=== PATIENT | male | born 1965 | race Caucasian/White ===

== ENCOUNTER 2016-12-20 09:05 | Inpatient (IN) ==
[2016-12-20] MEDS ORDERED: NARCAN ONE ×6 (09:14→09:29)
[2016-12-20] MEDS ORDERED: NS 1,000 ML ONE (09:20)
[2016-12-20] MEDS ORDERED: NARCAN 2 MG in NS 500 ML IV SCH (09:45)
[2016-12-20 09:51] LABS: MANUAL DIFF NEEDED? NO
--- NOTE | 2016-12-20 09:56 | Diag Imaging Result Doc PS360 ---
EXAM: CHEST-PORTABLE HISTORY: sob/cp TECHNIQUE: Erect AP portable chest at 0936 COMMENT: The appearance of the chest has not changed significantly since 09/09/2015. There is no evidence of acute pulmonary disease. The heart size and primary vascularity are within normal limits. IMPRESSION: No acute disease. Electronically signed by Alvaro Huff 12/20/2016 9:53 AM
[2016-12-20 09:57] LABS: BASO% 0.5 % (0.0-0.8); EOS# 0.11 X1000 (0.0-0.7); EOS% 1.3 % (0.0-10.0); HEMATOCRIT 46.7 % (42.0-52.0); HEMOGLOBIN 15.8 g/dL (14.0-18.0); IMM GRAN# 0.05 X1000 (0.0-0.04); IMM GRAN% 0.6 % (0.0-0.5); LYMPH# 5.03 X1000 (1.2-3.4); LYMPH% 57.7 % (20.5-51.1); MCH 30.4 PG (27-31); MCHC 33.8 g/dL (33-37); MCV 89.8 FL (81-99); MONO# 0.63 X1000 (0.11-0.59); MONO% 7.2 % (1.7-9.3); MPV 12.4 FL (7.4-10.4); NEUT% 32.7 % (42.2-75.2); PLT 229 X1000 (130-400)
[2016-12-20] MEDS ORDERED: ZOFRAN IV PRN (10:13)
[2016-12-20 10:20] LABS: AGAP 19; ALBUMIN 3.7 g/dL (3.5-5.0); ALKALINE PHOSPHATASE 100 U/L (32-122); BUN 15 mg/dL (8-22); CALCIUM 8.4 mg/dL (8.8-10.2); CHLORIDE 91 mmol/L (98-107); COSMO 284; GOT 26 U/L (10-34); GPT 35 U/L (10-44); POTASSIUM 4.2 mmol/L (3.5-5.1); SODIUM 131 mmol/L (136-145); TCO2 21 mmol/L (25-35); TOTAL PROTEIN 7.1 g/dL (6.3-8.3)
--- NOTE | 2016-12-20 10:20 | PROVIDER DOCUMENTATION ---
This chart was entered by Ashwin Schneider Scribe, acting as scribe for Macario Real MD. [id number] Abuse/Overdose - General Chief Complaint: Overdose Stated Complaint: POSS OVERDOSE Time Seen by Provider: 12/20/16 09:05 Source: EMS Unable to obtain history due to:: altered (due to possible overdose) Allergies/Adverse Reactions: Allergies Allergy/AdvReac Type Severity Reaction Status Date / Time No Known Allergies Allergy Verified 12/20/16 09:19 Home Medications: Home Medication List Medication Instructions Recorded Confirmed Last Taken Type Hydrochlorothiazide 25 mg PO DAILY 04/04/12 02/04/15 02/04/15 History Metoprolol [Lopressor] 50 mg PO DAILY 04/04/12 02/04/15 02/04/15 History Acetaminophen with Codeine 1 each PO Q6H PRN PRN #20 tablet 01/20/15 02/04/15 2 Days Ago Rx [Tylenol with Codeine #3 Tablet] Lisinopril [Zestril] 2.5 mg PO 02/04/15 02/04/15 02/04/15 History Metformin [Glucophage] 1,000 mg PO BID 02/04/15 02/04/15 02/04/15 History Omeprazole [Prilosec] 40 mg PO DAILY 02/04/15 02/04/15 02/04/15 History Sulfamethoxazole/Trimethoprim 1 each PO BID 02/04/15 02/04/15 02/04/15 History [Bactrim Ds Tablet] Tamsulosin [Flomax] 0.4 mg PO QHS 02/04/15 02/04/15 1 Day Ago History Azithromycin [Zithromax] 250 mg PO DAILY #4 tablet 09/10/15 Unknown Rx - History of Present Illness-Drug/Alcohol Nature of Presenting Problem: Patient is a 51 yo M that presents unresponsive and intubated per EMS. they report initially the call went out as a chest pain, patient was found unresponsive with breathing 2 times a minute. He was intubated by EMS, pt has long standing history of Heroin use This episode of drinking or use began:: unsure Severity: reports: severe Situational problems related to:: reports: N/A Associated Symptoms: reports: shortness of breath, vomiting. denies: diarrhea, fever/chills Similar Symptoms Previously?: Yes Recently seen or treated by another doctor?: No - Substance Abuse Substance Use: reports: opiates - Overdose Intentional drug overdose?: No List substance(s) ingested.: possible Heroin Review of Systems - Adult - REVIEW OF SYSTEMS - ADULT ROS:: unobtainable per condition Constitutional: reports: see HPI Eyes: reports: see HPI Ears, Nose, Mouth & Throat: reports: see HPI Cardiovascular: reports: see HPI Respiratory: reports: see HPI Gastrointestinal: reports: see HPI Genitourinary: reports: see HPI Musculoskeletal: reports: see HPI Integumentary: reports: see HPI Neurological: reports: see HPI Psychiatric: reports: see HPI Endocrine: reports: see HPI Hematologic/Lymphatic: reports: see HPI Allergic/Immunologic: reports: see HPI All Other Systems: Reviewed and Negative Past History - Adult - PAST MEDICAL HISTORY-ADULT Review of Records: reports: Old Records Reviewed, Nursing Assessment Review, Medications Reviewed Cardiovascular: reports: HTN Gastrointestinal: reports: GERD, other (cirrhosis) Endocrine/Immune: reports: Diabetes - PRIOR SURGERIES/PROCEDURES Surgical/Procedure History: reports: reviewed, not pertinent - PRIOR HOSPITALIZATIONS Prior Hospitalizations: reports: none - IMMUNIZATION STATUS Childhood Immunizations: See Nurse Assessment Flu Vaccine: See Nurse Assessment - FAMILY HISTORY Family History: reviewed, not pertinent - SOCIAL HISTORY Smoking: chew Substance Use: marijuana, opiates Alcohol Use Frequency: occasionally Living Situation: friend Physical Exam-General - PHYSICAL EXAM-ADULT Exam Limited by: pt condition Initial Vital Signs Reviewed: Yes - CONSTITUTIONAL General Appearance: severe distress, other (unresponsive) - EYES Eyes: other (pinpoint pupils) - HEAD, EARS, NOSE, MOUTH & THROAT HENMT: normocephalic/atraumatic, other (et tube in place) - RESPIRATORY Respiratory: respiratory distress, decreased rate - CARDIOVASCULAR Cardiovascular: regular rate, rhythm, no edema, no murmur - GASTROINTESTINAL (ABDOMEN) Abdominal Exam: normal bowel sounds, soft. negative: distended, rigid - MUSCULOSKELETAL Extremity: no pedal edema, normal capillary refill, pelvis stable - SKIN Integumentary: normal color, warm/dry - PSYCHIATRIC Psych/Mental Status: other (unresponsive) Progress - PLAN OF CARE/RESULTS Progress/Plan/Lab Results: Vital Signs - 8 hr 12/20/16 09:16 12/20/16 09:49 Temperature 97.0 F L Pulse Rate 93 H 94 H Respiratory Rate 2 L 40 H Blood Pressure 145/103 130/081 O2 Sat by Pulse Oximetry 99 87 L Laboratory Results - last 24 hr 12/20/16 12/20/16 09:11 09:11 WBC 8.71 RBC 5.20 Hgb 15.8 Hct 46.7 MCV 89.8 MCH 30.4 MCHC 33.8 RDW Std Deviation 13.5 Plt Count 229 MPV 12.4 H Immature Gran % (Auto) 0.6 H Neut % (Auto) 32.7 L Lymph % (Auto) 57.7 [place] % (Auto) 7.2 Eos % (Auto) 1.3 Baso % (Auto) 0.5 Immature Gran # (Auto) 0.05 H Neut # (Auto) 2.85 Lymph # (Auto) 5.03 [place] # (Auto) 0.63 H Eos # (Auto) 0.11 Baso # (Auto) 0.04 Estimated GFR/1.73 m2 > 60 Orders Category Date Time Status CHEST-PORTABLE [RAD] Stat Exams 12/20/16 09:36 Completed CBC WITH ELECTRONIC DIFF [HEME] Stat Lab 12/20/16 09:11 Completed CMP [COMPREHENSIVE METABOLIC PANEL] [CHEM] Stat Lab 12/20/16 09:[address] W/POSS RFLX CULT [URINALYSIS] Stat Lab 12/20/16 09:47 Ordered URINE DRUG SCREEN PL Stat Lab 12/20/16 09:47 Ordered 0.9% Sodium Chloride Inj [Ns] 1,000 ml Med 12/20/16 09:20 Discontinued .ROUTE As Directed 0.9% Sodium Chloride Inj [Ns] 500 ml Med 12/20/16 09:45 Active Naloxone [Narcan] 2 mg IV As Directed 0920-patient was given narcan and had immediate response, with eyes opening and moving around, ET tube was taken out and patient is talking and breathing on his own. patient reports not knowing what happened, denies taking the white lady or chasing the dragon Vital Signs Temp Pulse Resp BP Pulse Ox 12/20/16 09:49 97.0 F L 94 H 40 H 130/081 87 L 12/20/16 09:16 93 H 2 L 145/103 99 No Known Allergies Allergy (Verified 12/20/16 09:19) Hydrochlorothiazide 25 mg PO DAILY 04/04/12 Metoprolol [Lopressor] 50 mg PO DAILY 04/04/12 Acetaminophen with Codeine [Tylenol with Codeine #3 Tablet] 1 each PO Q6H PRN PRN #20 tablet 01/20/15 Lisinopril [Zestril] 2.5 mg PO 02/04/15 Metformin [Glucophage] 1,000 mg PO BID 02/04/15 Omeprazole [Prilosec] 40 mg PO DAILY 02/04/15 Sulfamethoxazole/Trimethoprim [Bactrim Ds Tablet] 1 each PO BID 02/04/15 Tamsulosin [Flomax] 0.4 mg PO QHS 02/04/15 Azithromycin [Zithromax] 250 mg PO DAILY #4 tablet 09/10/15 Laboratory 12/20/16 12/20/16 09:11 09:11 WBC 8.71 RBC 5.20 Hgb 15.8 Hct 46.7 MCV 89.8 MCH 30.4 MCHC 33.8 RDW Std Deviation 13.5 Plt Count 229 MPV 12.4 H Immature Gran % (Auto) 0.6 H Neut % (Auto) 32.7 L Lymph % (Auto) 57.7 [place] % (Auto) 7.2 Eos % (Auto) 1.3 Baso % (Auto) 0.5 Immature Gran # (Auto) 0.05 H Neut # (Auto) 2.85 Lymph # (Auto) 5.03 [place] # (Auto) 0.63 H Eos # (Auto) 0.11 Baso # (Auto) 0.04 Estimated GFR/1.73 m2 > 60 Orders Category Date Time Status CHEST-PORTABLE [RAD] Stat Exams 12/20/16 09:36 Completed CBC WITH ELECTRONIC DIFF [HEME] Stat Lab 12/20/16 09:11 Completed CMP [COMPREHENSIVE METABOLIC PANEL] [CHEM] Stat Lab 12/20/16 09:[address] W/POSS RFLX CULT [URINALYSIS] Stat Lab 12/20/16 09:47 Ordered URINE DRUG SCREEN PL Stat Lab 12/20/16 09:47 Ordered 0.9% Sodium Chloride Inj [Ns] 1,000 ml Med 12/20/16 09:20 Discontinued .ROUTE As Directed 0.9% Sodium Chloride Inj [Ns] 500 ml Med 12/20/16 09:45 Active Naloxone [Narcan] 2 mg IV As Directed pt admitted to using heroin just doesn't recall the route he used it Result Diagrams: 12/20/16 09:11 12/20/16 09:11 - XRAY 1 XRAY Study: Chest Impression: Normal XRAY Interpretation: negative per radiologist - CONSULTS/PCP/HOSPITALIST Notification #1 *Consult/PCP/Hospitalist*: operations supervisor 2nd shift for hosptialist Time Discussed: 10:11 Consult Disposition: Admit Departure - Departure Date of Disposition Decision: 12/20/16 Time of Disposition Decision: 10:12 DIAGNOSIS: Heroin overdose Qualifiers: Encounter type: initial encounter Injury intent: accidental or unintentional Qualified Code(s): T40.1X1A - Poisoning by heroin, accidental (unintentional), initial encounter Disposition: ADMITTED INPATIENT 09 Certified Medical Emergency: Emergent Condition: Stable Referrals and Follow-Ups: None,PCP [Primary Care Provider] - - Critical Care Note This patient required my direct & personal management of CC.: Yes Total Time (mins): 40 Critical Care Statement: This patient required my direct personal management to treat or rule out processes, the absence of which, could potentiallly result in sudden, clinically significant life or limb threatening deterioration. This chart was documented by the indicated scribe, (Ashwin Schneider, Scribe) and accurately reflects the services I performed and decisions made by me, Macario Real MD, as attested by the provider's signature.
[2016-12-20 10:45] LABS: URINE CULTURE PL NEEDED? NO
[2016-12-20 10:57] LABS: UR AMPHETAMINES QUAL PRESUMPTIVE POSITIVE (NONE DETECT); UR BARBITUATES QUAL NONE DETECTED (NONE DETECT); UR BENZODIAZEPIN QUAL PRESUMPTIVE POSITIVE (NONE DETECT); UR CANNABINOIDS QUAL NONE DETECTED (NONE DETECT); UR COCAINE QUAL NONE DETECTED (NONE DETECT); UR MDMA QUAL NONE DETECTED (NONE DETECT); UR METHADONE QUAL NONE DETECTED (NONE DETECT); UR METHAMPHETAMINE QUAL PRESUMPTIVE POSITIVE (NONE DETECT); UR OPIATES QUAL NONE DETECTED (NONE DETECT); UR OXYCODONE QUAL NONE DETECTED (NONE DETECT); UR PCP QUAL NONE DETECTED (NONE DETECT); UR TCA QUAL NONE DETECTED (NONE DETECT)
[2016-12-20 11:00] LABS: BILIRUBIN URINE NEGATIVE (NEGATIVE); BLOOD URINE NEGATIVE (NEGATIVE); CLARITY CLEAR (CLEAR); COLOR YELLOW; LEUKOCYTES URINE NEGATIVE (NEGATIVE); NITRITE URINE NEGATIVE (NEGATIVE); PROTEIN URINE TRACE mg/dL (NEGATIVE); SP GRAVITY URINE 1.025; UROBILINOGEN URINE NORMAL
[2016-12-20] MEDS: NS 1,000 ML IV SCH (11:00)
[2016-12-20 11:02] LABS: URINE EPITHELIAL CELLS <10 /HPF (<10); URINE RBC <10 /HPF (<10); URINE WBC <10 /HPF (<10)
[2016-12-20 11:03] LABS: URINE CAST NONE SEEN /LPF; URINE CRYSTAL NONE SEEN /HPF; URINE SOURCE CLEAN CATCH
[2016-12-20 11:51] LABS: HEMOGLOBIN A1C 7.1 % (4.8-6.0)
[2016-12-20 12:05] LABS: BLOOD TYPE ARTERIAL; METHB 1.5 % (0.0-1.5); O2(CT) 20.9 mL/dL (15.0-23.0); PO2(98.6) 60 mmHg (60-100); SAMPLE BLOOD; SAO2 91.7 % (95.0-100.0); THB 16.8 g/dL (11.5-17.4)
[2016-12-20 12:09] LABS: ALLEN TEST YES; DRAW SITE L RADIAL; MODALITY NRB
[2016-12-20 12:11] LABS: PCO2(98.6) 57 mmHg (35-45)
--- NOTE | 2016-12-20 12:36 | EKG Report ---
Test Performed on : 12/20/2016 09:20:11 AM Test Reason : CP Blood Pressure : / mmHG Vent. Rate : 094 BPM Atrial Rate : 094 BPM P-R Int : 142 ms QRS Dur : 090 ms QT Int : 386 ms P-R-T Axes : -02 042 072 degrees QTc Int : 482 ms Normal sinus rhythm. Prolonged QT Abnormal ECG No previous ECGs available Unconfirmed Result
--- NOTE | 2016-12-20 14:43 | HISTORY AND PHYSICAL ---
PRIMARY CARE PHYSICIAN: Dr. Hensley. CHIEF COMPLAINT: Found unresponsive at home breathing 2 times a minute. Upon EMS arrival he was intubated. Has a history of heroin use. HISTORY OF PRESENTING ILLNESS: This is a 51-year-old male who arrived to [facility] via EMS after they were called stating the patient was found unresponsive and breathing 2 times a minute. He was intubated in the field by EMS. Has a longstanding history of heroin use according to the friend in the home. On arrival to the emergency room he was intubated. He was given Narcan and had immediate response with eyes opening and moving around. The ET tube was taken out and patient was talking and breathing on his own. States that he used heroin this morning but states that he does not use daily but occasionally. After extubation he was placed on a non-rebreather saturating 87-90% with respirations 40-50. Laboratory data showed a sodium of 131, his glucose was 463. Urine drug screen was presumptive positive for amphetamines, methamphetamines and benzodiazepines. He was admitted to the intensive care unit for further evaluation and treatment. 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 PAST SURGICAL HISTORY: None. FAMILY HISTORY: Coronary artery disease. SOCIAL HISTORY: Currently lives with a friend. Chews tobacco. Drinks alcohol occasionally. Uses heroin, opiates, marijuana. ALLERGIES: He has no known drug allergies. HOME MEDICATIONS: Will verify current list of his home medications and restart as appropriate. LABORATORY DATA: Showed a white blood cell count of 8.71, hemoglobin 15.8, hematocrit 46.7, platelets 229,000. Sodium 131, potassium 4.2, chloride 91, CO2 21, BUN of 15, creatinine 1.1, glucose 463, AST 26, ALT 35, alkaline phosphatase 100. Urinalysis is negative. Urine drug screen is presumptive positive for amphetamines, methamphetamines and benzodiazepines. Chest x-ray showed no acute disease. REVIEW OF SYSTEMS: Unable to obtain from patient at this time. PHYSICAL EXAMINATION: VITAL SIGNS: Has a temperature of 97 degrees, pulse 94, respirations 40, blood pressure 130/81, saturating 87-90% on non-rebreather. GENERAL: This is a 51-year-old male who is lethargic but responds to verbal stimuli and answers questions appropriately but then closes eyes and drifts back off. HEENT: Appears normocephalic and atraumatic. Pupils are equal, round, reactive to light. Extraocular movements are intact. Oropharynx and nares are clear. NECK: Supple. LUNGS: With rhonchi to the left lung bland, clear to right. Equal lung expansion and chest wall movement. Noted to have some shallow breathing. Will take deep breaths when verbally stimulated. Equal lung expansion and chest wall movement at this time. HEART: With regular rate and rhythm. No murmurs, rubs, or gallops. ABDOMEN: Soft, nontender, nondistended. Bowel sounds are present x4 quadrants. EXTREMITIES: No clubbing, cyanosis, or edema. NEUROLOGICAL: Cranial nerves 2-12 appear grossly intact. ASSESSMENT: 1. Heroin overdose. 2. Diabetes type 2 with hyperglycemia. 3. Acute respiratory failure secondary to his heroin overdose. 4. Polysubstance abuse. PLAN: He was admitted to the intensive care unit at [place]. Christian catheter in place. Telemetry. Will place on diabetic diet. Normal saline at 75. Pattern blood sugars with sliding scale insulin and will verify his home medications and restart those as appropriate. Recheck a CBC and a CMP in the a.m. Dictated by SAM Bermeo for Fernandez Garcia MD cc: MD Fernandez Aguayo MD
[2016-12-20] MEDS: HUMALOG DOSE (PARKWAY) SUBQ SCH ×2 (17:02→20:57)
[2016-12-20] MEDS ORDERED: TYLENOL PO PRN (19:46)
[2016-12-20] MEDS: LANTUS INSULIN (PARKWAY) SUBQ SCH (20:57)
[2016-12-21] MEDS: NS 1,000 ML IV SCH (04:24)
[2016-12-21 06:25] LABS: AGAP 11; ALBUMIN 2.8 g/dL (3.5-5.0); ALKALINE PHOSPHATASE 102 U/L (32-122); BUN 12 mg/dL (8-22); CALCIUM 7.8 mg/dL (8.8-10.2); CHLORIDE 97 mmol/L (98-107); COSMO 266; GOT 25 U/L (10-34); GPT 31 U/L (10-44); POTASSIUM 3.8 mmol/L (3.5-5.1); SODIUM 131 mmol/L (136-145); TCO2 23 mmol/L (25-35); TOTAL PROTEIN 6.1 g/dL (6.3-8.3)
[2016-12-21] MEDS: HUMALOG DOSE (PARKWAY) SUBQ SCH ×4 (06:27→20:19)
--- NOTE | 2016-12-21 09:53 | Diag Imaging Result Doc PS360 ---
EXAM: CHEST-2 VIEWS HISTORY: hypoxia TECHNIQUE: Portable three views COMPARISON: 12/20/2016 FINDINGS: The lungs are well expanded. There are increased interstitial markings which have developed since the prior exam. The heart is not enlarged. I believe there are tiny pleural effusions. Increased density in the left base. IMPRESSION: 1.Interval development of pulmonary edema 2.Interval development of a small infiltrate in the left lower lobe Electronically signed by Willis Douglas 12/21/2016 9:51 AM
[2016-12-21] MEDS ORDERED: ZITHROMAX 500 MG/NS 500 MG/250 ML IVPB IV SCH (12:45)
[2016-12-21] MEDS ORDERED: LASIX IV SCH (12:45)
[2016-12-21] MEDS: ROCEPHIN 1 GM/NS 1 GM/50 ML IVPB IV SCH (13:42)
[2016-12-21] MEDS: DUONEB (A & A) INH SCH ×3 (15:20→23:11)
[2016-12-21] MEDS: LANTUS INSULIN (PARKWAY) SUBQ SCH (20:19)
[2016-12-22] MEDS: DUONEB (A & A) INH SCH ×5 (03:10→19:25)
[2016-12-22] MEDS: HUMALOG DOSE (PARKWAY) SUBQ SCH ×4 (06:14→20:21)
[2016-12-22 06:24] LABS: MANUAL DIFF NEEDED? NO
[2016-12-22 06:31] LABS: BASO% 0.1 % (0.0-0.8); EOS# 0.08 X1000 (0.0-0.7); EOS% 1.1 % (0.0-10.0); HEMATOCRIT 44.2 % (42.0-52.0); HEMOGLOBIN 14.8 g/dL (14.0-18.0); IMM GRAN# 0.02 X1000 (0.0-0.04); IMM GRAN% 0.3 % (0.0-0.5); LYMPH# 2.07 X1000 (1.2-3.4); LYMPH% 28.1 % (20.5-51.1); MCH 29.8 PG (27-31); MCHC 33.5 g/dL (33-37); MCV 89.1 FL (81-99); MONO# 0.81 X1000 (0.11-0.59); MPV 12.7 FL (7.4-10.4); NEUT% 59.4 % (42.2-75.2); PLT 163 X1000 (130-400); RBC 4.96 XMIL (4.7-6.1)
[2016-12-22] MEDS ORDERED: LASIX IV SCH (06:46)
[2016-12-22] MEDS ORDERED: ZITHROMAX 500 MG/NS 500 MG/250 ML IVPB IV SCH (06:46)
[2016-12-22 07:14] LABS: AGAP 9; BUN 10 mg/dL (8-22); CALCIUM 8.6 mg/dL (8.8-10.2); CHLORIDE 95 mmol/L (98-107); COSMO 277; POTASSIUM 3.1 mmol/L (3.5-5.1); SODIUM 136 mmol/L (136-145); TCO2 32 mmol/L (25-35)
[2016-12-22] MEDS: LASIX PO SCH (09:25)
[2016-12-22] MEDS: ZITHROMAX PO SCH (11:45)
[2016-12-22] MEDS: ROCEPHIN 1 GM/NS 1 GM/50 ML IVPB IV SCH (15:01)
[2016-12-22] MEDS: LANTUS INSULIN (PARKWAY) SUBQ SCH (20:22)
[2016-12-22] MEDS: PRINIVIL PO SCH (20:22)
[2016-12-23] MEDS: DUONEB (A & A) INH SCH ×7 (00:20→23:52)
[2016-12-23] MEDS: HUMALOG DOSE (PARKWAY) SUBQ SCH ×4 (06:18→21:11)
--- NOTE | 2016-12-23 11:29 | Diag Imaging Result Doc PS360 ---
EXAM: CHEST-2 VIEWS - 12/23/2016 HISTORY: hypoxia TECHNIQUE: Chest two views COMPARISON: 12/21/2016 FINDINGS: Heart size is normal. There is prominence of central markings which is decreased mildly. There is been interval decrease in posterior left lower lobe airspace disease. There is some subsegmental atelectasis at the left base. There is no substantial pleural effusion or pneumothorax identified. IMPRESSION: Prominence of central markings which is decreased mildly. Decrease in infiltrate or atelectasis at posterior left lower lobe. Electronically signed by Kevan Echols 12/23/2016 11:27 AM
[2016-12-23] MEDS: PRINIVIL PO SCH ×2 (15:11→21:11)
[2016-12-23] MEDS: LASIX PO SCH (15:11)
[2016-12-23] MEDS: ZITHROMAX PO SCH (15:11)
[2016-12-23] MEDS: ROCEPHIN 1 GM/NS 1 GM/50 ML IVPB IV SCH (15:13)
--- NOTE | 2016-12-23 19:00 | PROGRESS NOTE ---
DATE: 12/21/2016 SUBJECTIVE: The patient is much more awake, alert this morning. Denies any chest pain, palpitations. Does state that he has some cough and shortness of breath. Denies any jitteriness or shakiness. PHYSICAL: Vital Signs: Temperature 97, pulse 81, respiratory rate 20, BP 139/72, saturation 98% on room air. General: Patient is awake, alert. He is currently in no respiratory distress. He actually had 92% on room air earlier this morning. HEENT: Normocephalic, atraumatic. DREW. Neck: Supple. CV: Regular rate. Chest: Clear. Abdomen: Soft. Extremities: Moves all extremities. Neurologic: No changes. DIAGNOSTIC STUDIES: Chest x-ray demonstrates increased pulmonary edema, increased infiltrate in the left lower lobe. ASSESSMENT: 1. Acute left lower lobe pneumonia. 2. Acute pulmonary edema. 3. Hyperglycemia with improved glucose. 4. Hyponatremia. 5. Hypocalcemia. 6. Moderate protein calorie malnutrition. PLAN: Patient had planned for discharge today. However, given his new onset pneumonia, certainly we will keep him in the hospital. We will place him on antibiotics and continue to follow. Place him back on oxygen and further orders as needed. We will give him Lasix for his acute pulmonary edema. This is likely secondary to his acute respiratory failure secondary to his overdose yesterday. cc: Fernandez Garcia MD
--- NOTE | 2016-12-23 19:01 | PROGRESS NOTE ---
DATE: 12/22/2016 SUBJECTIVE: Patient complains of chest pain today. Complains of increased shortness of breath. He notes he is too tired to get out of bed. Denies any fevers or chills. Denies any GI or issues. PHYSICAL EXAMINATION: Temp 97 degrees, pulse 72, BP 165/96, respiratory 25, O2 saturation 98% on room air.General: Patient is awake, alert. He is in no respiratory distress. He is pleasant to talk with. Neck: Supple. CV: Regular rate. Chest: Decreased breath sounds but equal bilaterally. Abdomen: Soft. Extremities: Moves all extremities. Neurologic: No focal changes. Skin: Warm and dry. No rashes. ASSESSMENT: 1. Pulmonary edema. Patient had a 5 L urine output yesterday after being given Lasix. 2. Hypertension. Blood pressure is still elevated. We will increase his lisinopril. 3. Pneumonia. We will continue antibiotics. 4. Heroin overdose. Discussed with patient perils of abuse. 5. Diabetes with hyperglycemia improved. PLAN: We will continue patient in the hospital. We will not transfer him out of ICU as there is no bed available. We will continue antibiotics. Further orders as needed. We will stop his Lasix at this point and try to wean his oxygen. cc: Fernandez Garcia MD
--- NOTE | 2016-12-23 19:12 | PROGRESS NOTE ---
DATE: 12/23/2016 SUBJECTIVE: Patient notes he is feeling better today. He has not been out of bed. He is still tired and fatigued but he his chest pain is feeling better. Denies any chest pains or palpitations currently. OBJECTIVE: Temp 97 degrees, pulse 83, respiratory 16, BP 142/77 to 168/85.General: Patient is awake, alert, oriented. He is currently in no respiratory distress. He is feeling better. Neck: Supple. CV: Regular rate. Chest: Relatively clear. Abdomen: Soft. Extremities: Moves all extremities. Neurologic: No focal changes. ASSESSMENT: 1. Hypertension. We will continue to increase his blood pressure medications. 2. Pulmonary edema resolved. 3. Pneumonia. Continue Rocephin. Hopefully can transition over to oral antibiotics in the a.m. 4. Chronic anxiety and depression. 5. BPH. 6. Diabetes. We will restart his home medications. PLAN: Hopefully patient can transition to the floor today if a bed becomes available and discharge home in the a.m. We will continue to follow. Further orders as needed. cc: Fernandez Garcia MD
[2016-12-23] MEDS ORDERED: DESYREL PO SCH (21:00)
[2016-12-23] MEDS ORDERED: PRAVACHOL PO SCH (21:00)
[2016-12-23] MEDS: LANTUS INSULIN (PARKWAY) SUBQ SCH (21:11)
[2016-12-24] MEDS: DUONEB (A & A) INH SCH ×3 (03:07→13:02)
[2016-12-24] MEDS: HUMALOG DOSE (PARKWAY) SUBQ SCH ×2 (06:30→10:38)
[2016-12-24] MEDS ORDERED: PRILOSEC PO SCH (07:00)
[2016-12-24] MEDS ORDERED: GLUCOTROL XL PO SCH (08:00)
[2016-12-24] MEDS ORDERED: GLUCOPHAGE PO SCH (08:00)
[2016-12-24] MEDS ORDERED: ZOLOFT PO SCH (09:00)
[2016-12-24] MEDS ORDERED: NEURONTIN PO SCH (09:00)
[2016-12-24] MEDS ORDERED: FLOMAX PO SCH (09:00)
[2016-12-24] MEDS ORDERED: LOPRESSOR PO SCH (09:00)
[2016-12-24] MEDS: LASIX PO SCH (10:03)
[2016-12-24] MEDS: PRINIVIL PO SCH (10:03)
[2016-12-24 13:54] VITALS: BP 118/69
--- NOTE | 2016-12-24 14:09 | DISCHARGE SUMMARY ---
ADMISSION DATE: 12/20/2016 DISCHARGE DATE: 12/24/2016 PRIMARY CARE PHYSICIAN: Dr. Hensley ADMISSION DIAGNOSES: 1. Heroin overdose. 2. Type 2 diabetes with hyperglycemia. 3. Acute respiratory failure secondary to the heroin overdose. 4. Polysubstance abuse. DISCHARGE DIAGNOSES: 1. Heroin overdose. 2. Pneumonia. 3. Diabetes type 2. 4. Pulmonary edema resolved. 5. Hypertension. 6. Chronic anxiety and depression. 7. Polysubstance abuse. SUMMARY OF FINDINGS: This is a 51-year-old male, who arrived to the ER after he was found unresponsive and breathing around 2 times a minute. He was intubated in the field by EMS. He had a long-standing history of heroin use and used according to the friend in the home. He was given Narcan and had immediate response with eyes opening and moving around. The ET tube was taken out and the patient was talking and breathing on his own. He continued to have lethargy saturating with a non-rebreather 87-90%. He was placed on a Narcan drip x1. He became more alert but he dropped his saturations the next day and down in the 80s. We did a chest x-ray thinking that he most likely had aspirated and it showed an interval development of pulmonary edema and interval development of a small infiltrate in the left lower lobe. He was placed on IV antibiotic of Rocephin 1 gram IV q.24h, DuoNebs, Zithromax 50 mg p.o. q.24h. He was given IV Lasix initially and changed over to daily. He has tolerated that well. He has remained afebrile. He is now saturating 97% on room air. He is alert, awake and talking and it is felt that he can safely be discharged home today. DISCHARGE MEDICATIONS: Zithromax 500 mg 1 p.o. q.24 hours for 5 days, no refills. Lasix 40 mg p.o. daily #30 with 2 refills. He will continue his home medications of gabapentin 300 mg p.o. t.i.d., glipizide 5 mg 1 p.o. daily, lisinopril 20 mg p.o. b.i.d. #60 with 2 refills. Metformin 1000 mg p.o. b.i.d., metoprolol 50 mg p.o. daily. Omeprazole 40 mg p.o. daily. Pravastatin 40 mg p.o. daily. Sertraline 50 mg p.o. daily. Tamsulosin 0.4 mg p.o. daily. Trazodone 100 mg p.o. daily. We will discontinue his hydrochlorothiazide 25 mg p.o. daily. FOLLOWUP: He will need to follow up with his primary care physician in the next 1-2 weeks. DISCHARGE INSTRUCTIONS: All discharge instructions have been reviewed with the patient and he verbalizes understanding. TIME SPENT: A 35 minute discharge. Dictated by SAM Bermeo for Fernandez Garcia MD cc: SAM Bermeo MD Hiteshri S. Bhavsar, MD
== END 2016-12-24 13:35 | disposition home or self-care (01) ==
LOC: P.ED 09:05 → P.ICU 10:28
PROVIDERS: ATTEND Family Medicine